=== PATIENT | female | born 1980 | race Two or more races ===

== ENCOUNTER 2022-08-23 07:30 | Inpatient (IN) | payer OTHER ==
[~2022-08-23] VITALS: Ht 157.5 cm; Wt 68.9 kg
[2022-08-23] MEDS ORDERED: ELAVIL PO (09:11)
[2022-08-23] MEDS ORDERED: VITAMIN D PO (09:12)
[2022-08-23] MEDS ORDERED: VITAMIN C PO (09:12)
[2022-08-23] MEDS ORDERED: IRON PO (09:13)
[2022-08-23] MEDS ORDERED: MAGESTROL PO (09:28)
[2022-08-26] MEDS ORDERED: FERROUS SULFAT324 MG (13:46)
[2022-08-26] MEDS ORDERED: AMITRIPTYLINE H10 MG (13:46)
[2022-08-26] MEDS ORDERED: MEGESTROL ACETA40 MG (13:46)
[2022-08-26] MEDS ORDERED: FOLIC ACID1 MG (13:46)
[2022-08-26] MEDS ORDERED: FUSION PLUS CA1 EACH (13:46)
[2022-08-26] MEDS ORDERED: DOCUSATE SODIU100 MG (13:46)
[2022-08-26] MEDS ORDERED: VITAMIN D325 MC2 (13:46)
[2022-08-26] MEDS ORDERED: VITAMIN C100 MG (13:47)
== END 2022-08-27 14:26 | disposition home or self-care (01) | DRG 743 ==
LOC: SURG 08-26 07:00 → O/R 08-26 08:07 → OB/GYN 08-26 21:11
PROVIDERS: ADMIT Obstetrics & Gynecology; ATTEND Obstetrics & Gynecology
PROC: 0UT74ZZ Resection of Bilateral Fallopian Tubes, Percutaneous Endoscopic Approach (ICD-10-PCS; 2022-08-26)
PROC: 0USG4ZZ Reposition Vagina, Percutaneous Endoscopic Approach (ICD-10-PCS; 2022-08-26)
PROC: 0UT94ZZ Resection of Uterus, Percutaneous Endoscopic Approach (ICD-10-PCS; principal; 2022-08-26 07:00)
DX: D25.1 Intramural leiomyoma of uterus (principal); D25.0 Submucous leiomyoma of uterus; Z20.822 Contact with and (suspected) exposure to COVID-19